=== PATIENT | male | born 1990 | race Caucasian/White ===

== ENCOUNTER 2017-03-16 16:19 | Emergency (ER) | payer MEDICAID ==
[~2017-03-16] VITALS: Ht 188 cm; Wt 149.7 kg
[~2017-03-16 16:19] MED LIST: AMOXICILLIN 50500 MG PO; AMOXIL500 MG PO; ANTIBIOTIC PO; AURALGAN O10 ML/BOTT OT; CEPHALEXIN MON500 MG PO; ELIMITE5% EX; FLAGYL 500MG.500 MG PO; GUAFENESIN400 MG PO; NOMEDS *; PHENERGAN 25MG.25 M1 PO; SULFAMETHOXAZOL1 TA6 PO; ULTRACET 325 MG1 TAB PO; VICODIN 5/500 T1 TAB PO; VOLTAREN75 MG PO; ZOFRAN 8MG TABLE8 MG PO
--- OUTSIDE RECORDS SUMMARY | 2017-03-16 16:34 | External Medical Summary Rpt | CCD ---
Demographics Preferred Language Occitan Marital Status Unknown Amish Affiliation Unknown Race Unknown Ethnic Group Unknown Author Author , MIMI ULRICH Address Unknown Phone Immunization No patient found.
--- OUTSIDE RECORDS SUMMARY | 2017-03-16 16:34 | External Medical Summary Rpt | CCD ---
Demographics Preferred Language Chinese Marital Status Unknown Yarsani Affiliation Unknown Race Unknown Ethnic Group Unknown Author Author , MIMI ULRICH Address Unknown Phone Immunization No patient found.
[2017-03-16] MEDS ORDERED: ZOFRAN ODT4 MG PO (16:41)
--- NOTE | 2017-03-16 16:42 | Urgent Treatment Center Report ---
History of Present Issue Date/Time Seen by Provider 03/16/17 1632 Visit Reason Pt arrived:Walked Presenting Problem:PT C/O OF N/V AND STOMACH CRAMPING. Location if Accident: Onset of symptoms date/time:/ or onset unknown for:MEDICAL HX UNKNOWN Have you (or family members/close friends) recently traveled outside the [place]? N If Yes, where/when: Have you had exposure to infectious disease within the past month? TB? Other? 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 No Angina: No [place]: No Hypertension? No Hyperlipidemia? No CHF? No DVT? No PE? No COPD? No Asthma? No Anemia? No GERD? No Gastric ulcers? No GI Bleed? No Hernia? No Thyroid Problems? No Hypothyroidism? No CVA? No Seizures? No Diabetes? No UTI? No Stones? No BPH? No GB Disease: No Nephritic Syndrome? No Asplenia? No Hepatitis? No Sickle Cell Disease? No Arthritis? No Migraines? No Cataracts? No Glaucoma? No MRSA? No HIV? No TB? No Anxiety? No Depression? No Cancer? No More? No Immunization HX DT/Tetanus UNKNOWN Flu 2011-FSN Pneumonia NEVER Surgical Hx Previous Surgery?Y LAP APPY Family History Family HX Diabetes Yes CAD Yes Hypertension Yes Hyperlipidemia Yes Cancer Yes TB No Social History Smoking Hx Smoker: Current Every Day Smoker Tobacco: Yes Type Cigarettes Packs/day < 1 Pack Alcohol Alcohol: No Review of Systems All Other Systems Reviewed and Negative Gastrointestinal nausea, vomiting Physical Exam Vital Signs Vital Signs Date Time Temp Pulse Resp B/P Pulse O2 O2 Flow FiO2 Ox Delivery Rate 03/16 1627 98.0 90 20 147/84 96 General Appearance normal appearance, WD/WN, no apparent distress Respiratory Status Yes: trachea midline, chest symmetrical, non tender chest. No: respiratory distress. Cardiovascular normal exam, regular rate/rhythm Gastrointestinal normal bowel sounds, normal exam, non tender, no guarding, no rebound Neurologic alert, normal exam, oriented x 3 Medical Decision Making LABS/Meds/Orders Pt receiving controlled substance in ED? No Departure Departure Time of Disposition 1640 Disposition DC Home or Self Care(routine) Clinical Impression Primary Impression: Viral gastroenteritis Condition STABLE Patient Instructions DI for Viral Gastroenteritis -- Adult, [facility] Additional Instructions [place] diet Make sure to drink plenty of fluids Follow up with family doctor if symtpoms continue Return if needed Discharge Counseling Counseled pt/family regarding diagnosis, medications/RX, home care, follow up needs Prescriptions Current Visit Scripts Ondansetron (Zofran 4MG Odt) 4 MG PO Q6HP PRN NAUSEA AND VOMITING #6 ODT at 1121
--- NOTE | 2017-03-16 16:42 | Urgent Treatment Center Report ---
History of Present Issue Date/Time Seen by Provider 03/16/17 1632 Visit Reason Pt arrived:Walked Presenting Problem:PT C/O OF N/V AND STOMACH CRAMPING. Location if Accident: Onset of symptoms date/time:/ or onset unknown for:MEDICAL HX UNKNOWN Have you (or family members/close friends) recently traveled outside the [place]? N If Yes, where/when: Have you had exposure to infectious disease within the past month? TB? Other? Specify: Patient state that he began today having nausea and vomiting state that his stomach was cramping earlier today then he vomited x 2 States that he works at [employer] so they sent him home so that he would not be handling food to the public State that he decided to come in here and get checked ALLERGIES Coded Allergies: No Known Allergies (11/06/16) Home Medications Active Scripts METRONIDAZOLE (Metronidazole) 500 MG PO TID 10 Days Prov: 07/15/11 Ondansetron Hcl (Zofran 8MG Tab) 8 MG PO Q8HP PRN n/v #15 TAB Prov: 11/06/16 Reported Medications [ANTIBIOTIC] 500 MG PO 4 TIMES DAY History Medical History General CAD? No Angina: No [place]: No Hypertension? No Hyperlipidemia? No CHF? No DVT? No PE? No COPD? No Asthma? No Anemia? No GERD? No Gastric ulcers? No GI Bleed? No Hernia? No Thyroid Problems? No Hypothyroidism? No CVA? No Seizures? No Diabetes? No UTI? No Stones? No BPH? No GB Disease: No Nephritic Syndrome? No Asplenia? No Hepatitis? No Sickle Cell Disease? No Arthritis? No Migraines? No Cataracts? No Glaucoma? No MRSA? No HIV? No TB? No Anxiety? No Depression? No Cancer? No More? No Immunization HX DT/Tetanus UNKNOWN Flu 2011-FSN Pneumonia NEVER Surgical Hx Previous Surgery?Y LAP APPY Family History Family HX Diabetes Yes CAD Yes Hypertension Yes Hyperlipidemia Yes Cancer Yes TB No Social History Smoking Hx Smoker: Current Every Day Smoker Tobacco: Yes Type Cigarettes Packs/day < 1 Pack Alcohol Alcohol: No Review of Systems All Other Systems Reviewed and Negative Gastrointestinal nausea, vomiting Physical Exam Vital Signs Vital Signs Date Time Temp Pulse Resp B/P Pulse O2 O2 Flow FiO2 Ox Delivery Rate 03/16 1627 98.0 90 20 147/84 96 General Appearance normal appearance, WD/WN, no apparent distress Respiratory Status Yes: trachea midline, chest symmetrical, non tender chest. No: respiratory distress. Cardiovascular normal exam, regular rate/rhythm Gastrointestinal normal bowel sounds, normal exam, non tender, no guarding, no rebound Neurologic alert, normal exam, oriented x 3 Medical Decision Making LABS/Meds/Orders Pt receiving controlled substance in ED? No Departure Departure Time of Disposition 1640 Disposition DC Home or Self Care(routine) Clinical Impression Primary Impression: Viral gastroenteritis Condition STABLE Patient Instructions DI for Viral Gastroenteritis -- Adult, DIET[facility] Additional Instructions [place] diet Make sure to drink plenty of fluids Follow up with family doctor if symtpoms continue Return if needed Discharge Counseling Counseled pt/family regarding diagnosis, medications/RX, home care, follow up needs Prescriptions Current Visit Scripts Ondansetron (Zofran 4MG Odt) 4 MG PO Q6HP PRN NAUSEA AND VOMITING #6 ODT at 5947
[2017-03-16 16:43] VITALS: BP 147/84
[2017-03-23] MEDS ORDERED: PHENERGAN12.5 M3 PO (14:11)
== END 2017-03-16 16:44 | disposition home or self-care (01) ==
LOC: UTC 16:19
DX: A08.4 Viral intestinal infection, unspecified (principal); F17.210 Nicotine dependence, cigarettes, uncomplicated